=== PATIENT | female | born 1960 | race Caucasian/White ===

== ENCOUNTER 2018-11-29 08:24 | Observation (INO) | payer BC ==
[~2018-11-29] VITALS: Ht 167.6 cm; Wt 77.1 kg
[2018-11-29 09:00] LABS: HEMATOCRIT 35.5 % (37.0-47.0); HEMOGLOBIN 12.7 g/dl (12.0-16.0); IMMATURE GRANULOCYTES 0.5 % (0.0-5.0); MEAN CELL VOLUME 91.5 fL CALC (80.0-100.0); MEAN CORPUSCULAR HGB 32.7 pG CALC (26.0-32.0); MEAN CORPUSCULAR HGB CONC 35.8 g/L CALC (32.0-36.0); NEUT# 2.38 thou/uL (2.00-7.15); RED BLOOD COUNT 3.88 mill/uL (4.20-5.60); RED CELL DISTRI WIDTH 11.7 % (11.5-15.5)
[2018-11-29 09:13] LABS: ANION GAP 22 (6-22 (CALC)); BUN 13 mg/dL (7-17); BUN/CREATININE RATIO 20 (12-20 (CALC)); CARBON DIOXIDE 31 mmol/l (22-30); CHLORIDE 76 mmol/l (95-108); CREATININE 0.7 mg/dL (0.5-1.0); GFR > 60 ML/MIN (>=60 (CALC)); GFR FOR AFR.AMER. > 60 ML/MIN (>=60 (CALC)); SODIUM 126 mmol/l (137-146)
[2018-11-29] MEDS ORDERED: LOSARTAN/HCT1 TA1 PO (09:44)
[2018-11-29] MEDS ORDERED: SINGULAIR10 MG PO (09:45)
[2018-11-29] MEDS ORDERED: DULERA1 AE1 IN (09:46)
[2018-11-29] MEDS ORDERED: VENTOLIN HFA IN (09:48)
[2018-11-29] MEDS ORDERED: SPIRIVA RE2.5 MCG/AC IN (09:48)
[2018-11-29] MEDS ORDERED: ZOLPIDEM5 M1 PO (09:50)
[2018-11-29] MEDS ORDERED: PROVENTIL0.083 % IN (09:50)
[2018-11-29] MEDS ORDERED: CRESTOR10 MG PO (09:51)
[2018-11-29] MEDS ORDERED: ASPIRIN81 MG PO (09:51)
[2018-11-29] MEDS ORDERED: ISOSORB MONO30 MG PO (09:51)
[2018-11-29] MEDS ORDERED: ARNUITY EL100 MCG/AC IN (09:52)
[2018-11-29] MEDS ORDERED: FISH OIL1200 M1 PO (09:53)
[2018-11-29] MEDS ORDERED: COQ-10400 MG PO (09:53)
[2018-11-29 12:35] LABS: TSH, 3RD GENERATION 2.69 uIU/mL (0.47 - 4.68)
[2018-11-29 13:24] VITALS: BP 112/76
[2018-11-29 16:12] VITALS: BP 133/64
[2018-11-29 16:45] VITALS: BP 121/67
[2018-11-29 16:50] VITALS: BP 140/80
[2018-11-29 16:55] VITALS: BP 136/70
[2018-11-29 18:50] VITALS: BP 98/63
[2018-11-30] VITALS: BP 105/72
[2018-11-30 04:00] VITALS: BP 113/66
[2018-11-30 05:47] LABS: HEMOGLOBIN 11.9 g/dl (12.0-16.0); IMMATURE GRANULOCYTES 0.4 % (0.0-5.0); MEAN CELL VOLUME 93.7 fL CALC (80.0-100.0); MEAN CORPUSCULAR HGB 32.8 pG CALC (26.0-32.0); NEUT# 3.6 thou/uL (2.00-7.15); RED BLOOD COUNT 3.63 mill/uL (4.20-5.60); RED CELL DISTRI WIDTH 11.9 % (11.5-15.5)
[2018-11-30 06:09] LABS: ALBUMIN 4.7 g/dL (3.2-5.0); ALKALINE PHOSPHATASE 75 u/l (38-126); AMYLASE 67 u/l (30-110); ANION GAP 15 (6-22 (CALC)); BILIRUBIN, TOTAL 0.7 mg/dL (0.0-1.4); BUN 8 mg/dL (7-17); BUN/CREATININE RATIO 15 (12-20 (CALC)); CARBON DIOXIDE 32 mmol/l (22-30); CHLORIDE 85 mmol/l (95-108); CREATININE 0.5 mg/dL (0.5-1.0); GFR > 60 ML/MIN (>=60 (CALC)); GFR FOR AFR.AMER. > 60 ML/MIN (>=60 (CALC)); LIPASE 157 u/l (23-300); MAGNESIUM 1.6 mg/dL (1.6-2.3); POTASSIUM 3.1 mmol/l (3.5-5.1); SGOT/AST 120 u/l (14-36); SODIUM 128 mmol/l (137-146); TOTAL PROTEIN 7.3 g/dL (6.3-8.2)
[2018-11-30 08:10] VITALS: BP 113/74
[2018-11-30 12:00] VITALS: BP 133/60
[2018-11-30] MEDS ORDERED: COZAAR25 MG PO (14:24)
== END 2018-11-30 15:45 | disposition home or self-care (01) | DRG 312 ==
LOC: ED 08:24 → ED-I 11:00 → ED 11:29 → ED-I 11:30 → MS2 12:46
PROVIDERS: Family Medicine; ADMIT Internal Medicine Nephrology; ATTEND Internal Medicine Nephrology
DX: I95.2 Hypotension due to drugs (principal); T46.5X5A Adverse effect of other antihypertensive drugs, initial encounter; T50.2X5A Adverse effect of carbonic-anhydrase inhibitors, benzothiadiazides and other diuretics, initial encounter; E87.6 Hypokalemia; E86.9 Volume depletion, unspecified; I10 Essential (primary) hypertension; J44.9 Chronic obstructive pulmonary disease, unspecified; G47.33 Obstructive sleep apnea (adult) (pediatric); E78.5 Hyperlipidemia, unspecified; F41.8 Other specified anxiety disorders; M19.90 Unspecified osteoarthritis, unspecified site; Z14.8 Genetic carrier of other disease
CPT/HCPCS: G0378; Q9967